=== PATIENT | male | born 1955 | race Caucasian/White ===

== ENCOUNTER 2017-10-24 06:12 | Day surgery (SDC) | payer OTHER ==
[~2017-10-24] VITALS: Ht 162.6 cm; Wt 49.5 kg
[~2017-10-24 06:12] MED LIST: SODIUM CHLORIDE 0.9% 1,000 ML IV ONE
[2017-10-24] MEDS ORDERED: LIDOCAINE HCL 2% 30 ML JELLY TP ONE (06:13)
[2017-10-24] MEDS ORDERED: BENZOCAINE 20% 50 MCG/SPRAY 57 GM TP ONE (06:13)
[2017-10-24] MEDS ORDERED: LIDOCAINE HCL 4% 50 ML SOLUTION TP ONE (06:13)
[2017-10-24] MEDS ORDERED: SODIUM CHLORIDE 0.9% 1,000 ML IV ONE (07:30)
[2017-10-24] MEDS ORDERED: ASPI-1188 PO (07:37)
[2017-10-24] MEDS ORDERED: LOVA20 PO (07:37)
[2017-10-24] MEDS ORDERED: HYDR25TA PO (07:37)
[2017-10-24] MEDS ORDERED: GUAI200T5 PO (07:45)
[2017-10-24] MEDS ORDERED: FLUT16H NASAL (07:45)
[2017-10-24] MEDS ORDERED: BUPR150SR PO (07:45)
[2017-10-24] MEDS ORDERED: OMEP20 PO (07:45)
[2017-10-24] MEDS ORDERED: LORA10TA7 PO (07:45)
[2017-10-24] MEDS ORDERED: FAMO20 PO (07:45)
[2017-10-24] MEDS ORDERED: HYD25 PO (07:45)
[2017-10-24] MEDS ORDERED: MONT10TA21 PO (07:45)
[2017-10-24] MEDS ORDERED: TIOT4MIS2 PO (07:45)
[2017-10-24] MEDS ORDERED: ALBU8.5H8 IH (07:45)
[2017-10-24] MEDS ORDERED: LISI-660 PO (07:45)
[2017-10-24] MEDS ORDERED: FLUT1AER8 PO (07:46)
[2017-10-24] MEDS ORDERED: FentaNYL CITRATE-PF 100 MCG/2 ML VIAL ONE (07:51)
[2017-10-24] MEDS ORDERED: MIDAZOLAM HCL 2 MG/2 ML VIAL ONE (07:51)
[2017-10-24] MEDS ORDERED: MethylPREDNISolone SOD SUCC 125 MG/2 ML VIAL IVP ONE (09:15)
[2017-10-24] MEDS ORDERED: MethylPREDNISolone SOD SUCC 125 MG/2 ML VIAL ONE (09:46)
[2017-10-24] MEDS ORDERED: OXYGEN THERAPY IH SCH (20:00)
== END 2017-10-24 10:40 | disposition home or self-care (01) ==
LOC: SURGERY 06:12
PROVIDERS: ATTEND Internal Medicine Critical Care Medicine
DX: J38.4 Edema of larynx (principal); B37.0 Candidal stomatitis; J84.111 Idiopathic interstitial pneumonia, not otherwise specified; J43.9 Emphysema, unspecified; I10 Essential (primary) hypertension; E78.00 Pure hypercholesterolemia, unspecified; F32.9 Major depressive disorder, single episode, unspecified; J45.998 Other asthma; Z79.82 Long term (current) use of aspirin; Z79.891 Long term (current) use of opiate analgesic; Z87.891 Personal history of nicotine dependence; Z98.890 Other specified postprocedural states; Z79.899 Other long term (current) drug therapy
CPT/HCPCS: 31623; 31624; 71045; 87015; 87070; 87077; 87205; 87206; 87220; J2250; J2930; J3010; J7030